=== PATIENT | male | born 1950 | race Caucasian/White ===

== ENCOUNTER 2017-08-14 02:18 | Emergency (ER) | payer OTHER, SELFPAY ==
[~2017-08-14] VITALS: Ht 167.6 cm; Wt 81.0 kg
[2017-08-14] MEDS ORDERED: ACETAMINOPHEN 500 MG TABLET PO ONE (03:00)
[2017-08-14] MEDS ORDERED: SODIUM CHLORIDE 0.9% 1,000ML IVBOLUS ONE (03:00)
[2017-08-14] MEDS ORDERED: OMNIPAQUE 350 MG/ML, 100ML BOTTLE ONE (03:01)
[2017-08-14 03:02] LABS: HEMOGLOBIN 14.1 g/dL (13.7-18.0); WHITE BLOOD COUNT 11.1 x10^3/uL (3.4-10)
[2017-08-14 03:09] LABS: ASPARTATE AMINO TRANSFERASE 27 U/L (15-37); BLOOD UREA NITROGEN 13 mg/dL (7-18)
[2017-08-14] MEDS ORDERED: ACETAMINOPHEN 500 MG TABLET ONE (03:11)
[2017-08-14 04:48] VITALS: BP 168/82
[2017-08-14] MEDS ORDERED: LEVOFLOXACIN 750 MG TABLET PO ONE (05:30)
== END 2017-08-14 06:28 | disposition home or self-care (01) ==
LOC: ED 05:02
DX: R50.82 Postprocedural fever (principal); M54.9 Dorsalgia, unspecified
CPT/HCPCS: 36415; 71010; 72133; 80053; 81003; 83605; 84145; 85025; 87040; 96360; 99285; J7030; Q9967

== ENCOUNTER 2020-09-03 21:20 | Observation (INO) | payer OTHER ==
[~2020-09-03] VITALS: Ht 167.6 cm; Wt 82.2 kg
[2020-09-03] MEDS ORDERED: MECL-101 PO (21:53)
[2020-09-03] MEDS ORDERED: METF500T17 PO (21:53)
[2020-09-03] MEDS ORDERED: OMEP-110 PO (21:53)
[2020-09-03] MEDS ORDERED: ZOLP5TAB6 PO (21:53)
[2020-09-03] MEDS ORDERED: ALBU1.25 NEB (21:53)
[2020-09-03] MEDS ORDERED: SIMV20TA19 PO (21:53)
[2020-09-03] MEDS ORDERED: HYDR25TA6 PO (21:53)
[2020-09-03] MEDS ORDERED: LISI-170 PO (21:53)
[2020-09-03] MEDS ORDERED: CETI10CA PO (21:53)
[2020-09-03] MEDS ORDERED: NIFE90TA53 PO (21:53)
--- NOTE | 2020-09-03 21:53 | NUR ---
[facility] COMPLAINTS OF DIZZINIESS X2 DAYS. HX OF VERTIGO. PATIENT STATED THAT HE IS UNABLE TO WALK WITH IT AND IS NAUSEA. PATIENT STATED THAT HE TRIED TAKING HIS MECLIZINE WITH NO EFFECT. PATIENT STATED THEY SENT HIM HOME YESTERDAY AND FELL LANDING ON LEFT ARM NOW UNABLE TO RAISE LEFT ARM. 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
[2020-09-03 22:26] LABS: BASOPHILS % (AUTO) 0 % (0-1); EOSINOPHILS % (AUTO) 1 % (1-7); LYMPHOCYTES % (AUTO) 23 % (22-44); MEAN CORPUSCULAR HEMOGLOBIN 28.9 pg (27.5-34.5); MEAN CORPUSCULAR HGB CONC 34.1 g/dL (33.2-36.2); MEAN PLATELET VOLUME 8.1 fL (7.4-10.4); MONOCYTES % (AUTO) 8 % (2-9); NEUTROPHILS % (AUTO) 68 % (42-75); PLATELET COUNT 196 x10^3/uL (130-400); RED BLOOD COUNT 4.93 x10^6/uL (4.38-5.82); RED CELL DISTRIBUTION WIDTH 13.6 % (9.4-14.8)
[2020-09-03 22:38] LABS: ALBUMIN 3.9 g/dL (3.4-5.0); ANION GAP 6 mmol/L (5-15); CALCIUM 8.6 mg/dL (8.5-10.1); CHLORIDE 106 mmol/L (98-107)
[2020-09-03 22:42] LABS: TROPONIN I < 0.015 ng/mL (0.000-0.045)
[2020-09-03 22:48] LABS: MD NO
[2020-09-03] MEDS ORDERED: OMNIPAQUE 350 MG/ML, 100ML BOTTLE ONE (22:52)
[2020-09-03 22:56] LABS: INTERNATIONAL NORMALIZED RATIO 1.05 (0.93-1.1); PROTHROMBIN TIME 10.8 Seconds (9.6-11.5)
[2020-09-04] MEDS ORDERED: ZOLPIDEM 10MG TABLET PO PRN (00:30)
[2020-09-04] MEDS ORDERED: ACETAMINOPHEN 325 MG TABLET PO PRN (00:30)
[2020-09-04] MEDS ORDERED: DIAZEPAM 5 MG TABLET PO PRN (00:30)
[2020-09-04] MEDS ORDERED: MECLIZINE CHEWABLE 25 MG TAB PO PRN (00:30)
[2020-09-04] MEDS ORDERED: ZOLPIDEM 10MG TABLET PO SCH (00:30)
[2020-09-04] MEDS ORDERED: ONDANSETRON ODT 4 MG PO PRN (00:30)
[2020-09-04] MEDS ORDERED: BISACODYL 10 MG SUPP PR PRN (00:30)
[2020-09-04] MEDS ORDERED: POLYETHYLENE GLYCOL 17 GM PACKET PO PRN (00:30)
[2020-09-04 02:01] VITALS: BP 166/91
[2020-09-04] MEDS: ALBUTEROL HFA 90 MCG/SPRAY INH SCH ×4 (02:12→14:44)
[2020-09-04] MEDS ORDERED: BUDE10.2 INH (02:15)
[2020-09-04] MEDS ORDERED: HYDROCHLOROTHIAZIDE 25 MG TABLET PO SCH (09:00)
[2020-09-04] MEDS ORDERED: metFORMIN 500 MG TABLET PO SCH (09:00)
[2020-09-04] MEDS ORDERED: SODIUM CHLORIDE FLUSH 10ML SYR IVF SCH (09:00)
[2020-09-04] MEDS ORDERED: OMEPRAZOLE 20 MG CAPSULE.DR PO SCH (09:00)
[2020-09-04] MEDS ORDERED: CETIRIZINE 10 MG TABLET PO SCH (09:00)
[2020-09-04] MEDS ORDERED: LISINOPRIL 20 MG TABLET PO SCH (09:00)
[2020-09-04] MEDS ORDERED: niFEDipine ER 60 MG TABLET.ER PO SCH (09:00)
[2020-09-04] MEDS ORDERED: SENNA/DOCUSATE TABLET PO SCH (09:00)
[2020-09-04 09:01] VITALS: BP 144/98
[2020-09-04 14:28] VITALS: BP 132/86
[2020-09-04] MEDS ORDERED: SIMVASTATIN 20 MG TABLET PO SCH (21:00)
== END 2020-09-04 18:07 | disposition home or self-care (01) ==
LOC: ED 22:07 → EDIP 09-04 00:12 → INTOOBSV 09-04 00:12 → 5SO 09-04 01:56
PROVIDERS: ADMIT Family Medicine; ATTEND Family Medicine
DX: R42 Dizziness and giddiness (principal); I10 Essential (primary) hypertension; E78.5 Hyperlipidemia, unspecified; E11.9 Type 2 diabetes mellitus without complications; Z79.899 Other long term (current) drug therapy; Z79.84 Long term (current) use of oral hypoglycemic drugs
CPT/HCPCS: 36415; 70450; 70496; 70498; 70551; 80048; 82040; 84484; 85025; 85610; 85730; 93005; 97162; 99285; G0378; Q9967